=== PATIENT | male | born 1970 | race Caucasian/White ===

== ENCOUNTER 2022-08-10 05:57 | Emergency (ER) | payer OTHER, SELFPAY ==
[2022-08-10 06:08] VITALS: BP 149/92; PULSE 83; RESP 18; TEMP 36.7; O2SAT 99; BMI 31.0
--- NOTE | 2022-08-10 06:20 | CRLHL7_ITS ---
For Patients: As a result of the Century Cures Act, medical imaging exams and procedure reports are released immediately into your electronic medical record. You may view this report before your referring provider. If you have questions, please contact your health care provider. INDICATION: Injury. TECHNIQUE: Three views right knee. COMPARISON: None. FINDINGS: The bony alignment is anatomic. No fracture is detected. The joint spaces are preserved. There is a small joint effusion. IMPRESSION: 1. No acute osseous abnormality. 2. No significant degenerative change. 3. Small joint effusion. Consider MRI to assess for internal joint derangement. Dictated by Rosalio Greenwood MD @ 08/10/2022 7:56:56 AM (Electronically Signed)
--- NOTE | 2022-08-10 06:38 | ED_ITS ---
HPI - General Adult General Date Seen: 08/10/22 Chief complaint: Extremity Pain/Injury, Lower Stated complaint: fell, right leg pain Time Seen by Provider: 08/10/22 06:07 Source: patient Mode of arrival: wheelchair Limitations: no limitations History of Present Illness HPI narrative: Patient is a 52-year-old male who arrived at work this morning and stepped out of his truck onto the running boards and slipped on the ice. He had his thigh against the door and twisted his knee. A friend sought happen and helped him into the vehicle and brought him to the emergency department. He initially had pain in both the knee and the thigh but for the most part the majority of the pain is in the thigh now. He wonders if he may have dislocated his kneecap and popped it back in when he straighten the leg out. That has never happened to him previously. His only medical conditions are hypertension which he treats with lisinopril and ADHD which he takes Ritalin four. He works at [employer]. Related Data Home Medications Medication Instructions Recorded Confirmed lisinopril 20 mg tablet 20 mg PO DAILY 08/10/22 08/10/22 methylphenidate HCl 20 mg tablet 20 mg PO DAILY 08/10/22 08/10/22 Allergies Allergy/AdvReac Type Severity Reaction Status Date / Time No Known Drug Allergies Allergy Verified 08/10/22 06:11 Review of Systems Narrative: Review of systems is outlined above otherwise noted to be negative. [facility] Medical History (Updated 08/10/22 @ 07:32 by Jt Dorman MD) ADHD Hypertension Surgical History (Updated 08/10/22 @ 06:15 by Edgardo Evans RN) No significant past surgical history Social History Smoking Status: Never smoker Do you use any of these nicotine containing products: None Second hand tobacco smoke exposure: No How often do you have a drink containing alcohol: never How often do you have six or more drinks on one occasion: Never AUDIT-C Alcohol total score: 0 Non-prescribed substance use: denies use Exam Narrative: Exam Narrative: Vitals noted. Lungs are clear, heart is regular without murmur. Abdomen is soft and nontender. Good distal pulses, no pitting peripheral edema. He has tenderness with palpation of the knee and distal thigh. No palpable abnormalities. No ligamentous laxity with varus or valgus stressing. He is tender along the medial joint line. Anterior drawer sign is negative. He was ambulatory in the ER prior to his departure. Const: Vital Signs, click to edit/add: Vital Signs - 24 hr 08/10/22 06:08 Temperature 98.0 F Pulse Rate [Right Pulse Oximeter] 83 Respiratory Rate 18 Blood Pressure [Ri ght Upper Arm] 149/92 H Pulse Oximetry 99 Oxygen Delivery Me thod Room Air Course Course Hospital Course: Patient was seen and examined. X-ray of the knee was done and was normal other than an effusion. We discussed that x-rays do not show cartilage tears or ligamentous tears and he may need to consider an MRI if his symptoms do not rapidly improve. He was offered an immobilizer but was able ambulate without it. Vital Signs Vital signs: Initial Vital Signs Pulse Strength 3+ Normal 08/10/22 06:05 Vital Signs Temperature 98.0 F 08/10/22 06:08 Pulse Rate 83 08/10/22 06:08 Respiratory Rate 18 08/10/22 06:08 Blood Pressure 149/92 H 08/10/22 06:08 Pulse Oximetry 99 08/10/22 06:08 Oxygen Delivery Method 08/10/22 06:08 Temperature 98.0 F 08/10/22 06:08 Pulse Rate 83 08/10/22 06:08 Respiratory Rate 18 08/10/22 06:08 Blood Pressure 149/92 H 08/10/22 06:08 Pulse Oximetry 99 08/10/22 06:08 Oxygen Delivery Method 08/10/22 06:08 Medical Decision Making MDM Narrative Medical decision making narrative: Discussed there is no bony abnormality. He may have a meniscal tear or even a collateral ligament or ACL disruption. He will use ice, rest, ibuprofen. If his symptoms are not improving he will follow up with his PCP to discuss whether not an MRI is indicated. Discharge Plan Discharge Clinical Impression: Injury of right knee Patient Disposition: Home, Self-Care Condition: Stable Additional Instructions: Rest, ice, elevation. Ibuprofen 600 mg 3 times daily. Weightbear as tolerated. Knee immobilizer if needed. If symptoms are not significantly improved over the next few days follow-up in the clinic to discuss further evaluation. Prescriptions: No Action methylphenidate HCl 20 mg tablet 20 mg PO DAILY lisinopril 20 mg tablet 20 mg PO DAILY Follow Up/Referrals: Provider,Not a Local [Primary Care Provider] - Stand Alone Forms: MyHealth Info Instructions
--- NOTE | 2022-08-10 07:58 | ED.NURSE ---
up ambulating independently. declined knee immobilizer.
== END 2022-08-10 08:00 | disposition home or self-care (01) ==
PROVIDERS: Emergency Provider Family Medicine
DX: S89.91XA Unspecified injury of right lower leg, initial encounter (principal); W00.9XXA Unspecified fall due to ice and snow, initial encounter
CPT/HCPCS: 73562; 99282; 99283